=== PATIENT | female | born 1990 | race Caucasian/White ===

== ENCOUNTER 2017-11-01 16:48 | Emergency (ER) | payer SELFPAY ==
[~2017-11-01] VITALS: Ht 162.6 cm; Wt 78.1 kg
[2017-11-01] MEDS ORDERED: SUMA25TA4 PO (17:16)
[2017-11-01] MEDS ORDERED: ACETAMINOPHEN 500 MG TABLET ONE (17:25)
[2017-11-01] MEDS ORDERED: DIPHENHYDRAMINE 50 MG/ML, 1ML ONE (17:25)
[2017-11-01] MEDS ORDERED: METOCLOPRAMIDE 5 MG/ML, 2ML ONE (17:25)
[2017-11-01] MEDS ORDERED: DEXAMETHASONE 4 MG/ML, 5ML ONE (17:26)
[2017-11-01] MEDS ORDERED: KETOROLAC 30 MG/1 ML ONE (17:26)
[2017-11-01] MEDS ORDERED: SODIUM CHLORIDE 0.9% 1,000ML IVBOLUS ONE (17:30)
[2017-11-01] MEDS ORDERED: DIPHENHYDRAMINE 50 MG/ML, 1ML IVPush ONE (17:30)
[2017-11-01] MEDS ORDERED: DEXAMETHASONE 4 MG TABLET PO ONE (17:30)
[2017-11-01] MEDS ORDERED: KETOROLAC 30 MG/1 ML IVPush ONE (17:30)
[2017-11-01] MEDS ORDERED: METOCLOPRAMIDE 5 MG/ML, 2ML IVPush ONE (17:30)
[2017-11-01] MEDS ORDERED: DIHYDROERGOTAMINE 1 MG/ML, 1ML IM ONE (17:30)
[2017-11-01] MEDS ORDERED: DEXAMETHASONE 12 MG in SODIUM CHLORIDE 0.9% 50 ML IV ONE (18:00)
[2017-11-01] MEDS ORDERED: DEXAMETHASONE 4 MG/ML, 1ML IVPush ONE (18:00)
[2017-11-01 18:19] VITALS: BP 103/72
[2017-11-01] MEDS ORDERED: ONDANSETRON ODT 4 MG ONE (19:22)
[2017-11-01] MEDS ORDERED: ONDANSETRON ODT 4 MG PO ONE (19:30)
== END 2017-11-01 19:30 | disposition home or self-care (01) ==
LOC: ED 17:51
DX: G43.019 Migraine without aura, intractable, without status migrainosus (principal)
CPT/HCPCS: 96365; 96372; 96375; 99284; J1100; J1110; J1200; J1885; J2765; J7030; Q0162